=== PATIENT | female | born 1995 | race Caucasian/White ===

== ENCOUNTER 2016-11-19 10:58 | Emergency (ER) | payer OTHER ==
[~2016-11-19 10:58] MED LIST: ACET500C PO; IBUP60TA PO; PRENTAB40 PO; REGL5TAB2 PO; ZOFR4SOL PO
--- NOTE | 2016-11-19 12:22 | EDDOCDS ---
Physician Documentation [facility] Name: Matilde Kilpatrick Age: 21 yrs Sex: Female : 1995 Arrival Date: 11/19/2016 Time: 10:58 Bed PR Private MD: Bari Disposition: 11/19/16 12:13 Discharged to Home/Self Care. Impression: Other abnormal uterine and vaginal bleeding - menstural cycle, Encounter for test. - Condition is Stable. - Prescriptions for Naprosyn 500 mg Oral Tablet - take 1 tablet by ORAL route 2 times per day take with food; 30 tablet. - Medication Reconciliation form. - Follow up: Bari; When: Call to arrange an appointment; Reason: Wound/Symptom Recheck, Recheck today's complaints, Worsening of conditions, Continuance of care. - Problem is an ongoing problem. - Symptoms are unchanged. Historical: - Allergies: No known drug Allergies; - Home Meds: 1. Depo-Provera 150 mg/mL IM susp 1 mL every 3 mo (Last dose: 09/25/2016) - PMHx: none; - PSHx: D & C; Ankle Arthroscopy- Left; - Social history: Smoking status: Patient states former smoker of tobacco. No barriers to communication noted, The patient speaks fluent Korean, Speaks appropriately for age. - Family history: Not pertinent. - : The pt / caregiver states he / she is not on anticoagulants. Home medication list is obtained from the patient. - Exposure Risk Screening:: None identified. 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 7 in. (170.18 cm) (R); 12:16 BP 142 / 64 LA Sitting (auto/lg); Pulse 89; Resp 20; Temp 97.9(O); Pulse Ox 100% on bnb R/A; Pain 4/10; 11:00 Body Mass Index 29.60 (85.73 kg, 170.18 cm) elp MDM: 11:15 Hcg, Serum Quantitative Ordered. EDMS 11:23 Financial registration complete. mm15 11:26 [facility] Payment Agreement was scanned into [employer] and attached to record. mm15 12:10 Hcg, Serum Quantitative Reviewed. cc10 Signatures: Dispatcher [employer] EDPA Anthony Beltrán RN RN mlb1 Nitza Tracy RN RN hs1 Ash Randhawa mm15 Percy Hatfield PA-C PAChristopher cc10 The chart was reviewed and I authenticate all verbal orders and agree with the evaluation and treatment provided.Attachments: 11:26 [facility] Payment Agreement mm15 MTDD
--- NOTE | 2016-11-19 12:22 | EDDOCDS ---
Nurse's Notes [facility] Name: Matilde Kilpatrick Age: 21 yrs Sex: Female : 1995 Arrival Date: 11/19/2016 Time: 10:58 Bed PR1 / 25 Private MD: Bari Diagnosis: Other abnormal uterine and vaginal bleeding-menstural cycle;Encounter for test Presentation: 11/19 11:06 Presenting complaint: Patient states: 2 positive tests last week however hs1 faint and patient report blood every time she wipes and is now crampy. Risk factors: The patient reports no loss of conciousness prior to arrival. This patient has not had a hysterectomy. This patient has not begun menopause. Adult Sepsis Screening: The patient does not have new or worsening altered mentation. Patient's respiratory rate is less than 22. Systolic blood pressure is greater than 100. Patient has a qSOFA score of 0- Negative Sepsis Screen. Suicide/Homicide risk assessment- the patient denies having any suicidal and/or homicidal ideations and does not present with any other emotional, behavioral or mental health complaints. Status: The patient is a dependent. Transition of care: patient was not received from another setting of care. 11:06 Acuity: GUANACO Level 3 hs1 11:06 Method Of Arrival: Walkin/Carried/Asstd hs1 Triage Assessment: 11:08 General: Appears in no apparent distress, comfortable, Behavior is appropriate for age, hs1 cooperative. Pain: Location: pelvis Pain currently is 4 out of 10 on a pain scale. Quality of pain is described as crampy. HIV screening NA for this visit Offered previously. : Reports vaginal bleeding that is brown when wiping. 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 Depo-Provera 150 mg/mL IM susp 1 mL every 3 mo (Last dose: 09/25/2016) - PMHx: none; - PSHx: D & C; Ankle Arthroscopy- Left; - Social history: Smoking status: Patient states former smoker of tobacco. No barriers to communication noted, The patient speaks fluent Nepali, Speaks appropriately for age. - Family history: Not pertinent. - : The pt / caregiver states he / she is not on anticoagulants. Home medication list is obtained from the patient. - Exposure Risk Screening:: None identified. Screenin:20 Screening information is obtained from the patient. Fall risk: No risks identified. mlb1 Assistance ADL's: requires no assistance with activities of daily living. Abuse/DV Screen: The patient / caregiver reports he/she is: not in a situation that causes fear, pain or injury. Nutritional screening: No deficits noted. Advance Directives: Currently, there is no health care proxy. home support is adequate. Assessment: 12:19 General: Appears in no apparent distress, comfortable, Behavior is appropriate for age, mlb1 cooperative. Pain: Denies pain. Respiratory: No deficits noted. :. : NA Reports. Vital Signs: 11:00 BP 146 / 70; Pulse 99; Resp 16; Temp 97.9; Pulse Ox 100% ; Weight 85.73 kg (M); Height elp 5 ft. 7 in. (170.18 cm) (R); 12:16 BP 142 / 64 LA Sitting (auto/lg); Pulse 89; Resp 20; Temp 97.9(O); Pulse Ox 100% on bnb R/A; Pain 4/10; 11:00 Body Mass Index 29.60 (85.73 kg, 170.18 cm) [facility] Vitals: 11:00 Log In Time: November 19, 2016 at 10:58. [facility] ED Course: 11:00 Patient visited by Padmini Oswald PCA. elp 11:00 Bari is Private Physician. elp 11:00 Patient visited by Padmini Oswald PCA. elp 11:00 Patient moved to Waiting elp 11:01 [facility] Hat[facility] cc10 11:01 Alina Greene MD is Attending Physician. cc10 11:01 Patient moved to Pre RCE elp 11:07 Triage Initiated hs1 11:09 Patient moved to Triage 1 hs1 11:10 Patient visited by Percy Hatfield PA-C. cc10 11:10 Patient visited by Percy Hatfield PA-C. cc10 11:22 Patient moved to TR1 mk4 11:26 Patient visited by Vidya Chamberlain RN. mk4 11:26 [facility] Payment Agreement was scanned into [employer] and attached to record. mm15 11:26 Hcg, Serum Quantitative Sent. mk4 12:11 Patient visited by Vidya Chamberlain RN. mk4 12:11 Patient moved to dem 12:13 Bari is Referral Physician. cc10 12:17 Patient visited by Letitia Buck PCA. bnb 12:20 No IV's were initiated during this patient's visit. No procedures done that require mlb1 assistance. 12:21 Patient visited by Anthony Beltrán RN. mlb1 12:21 The patient / caregiver is instructed regarding the plan of care and ED course. mlb1 Order Results: Lab Order: Hcg, Serum Quantitative; SPEC'M 11/19/16 11:21 Test: HCG, SERUM QUANTITATIVE; Value: < 1.0; Units: MIU/ML; Status: F Test Note: ; GESTATIONAL AGE APPROXIMATE HCG RANGE (MIU/ML) 0.2-1 WEEK 5-50 1-2 WEEKS 50-500 2-3 WEEKS 100-5,000 3-4 WEEKS 500-10,000 4-5 WEEKS 1,000-50,000 5-6 WEEKS 10,000-100,000 6-8 WEEKS 15,000-200,000 2-3 MONTHS 10,000-100,000 NON FEMALES LESS THAN 3.0 Patient samples may contain human heterophilic antibodies that could react with immunoassays to give falsely elevated or depressed results. This assay has been designed to minimize interference from heterophilic antibodies. Elevated hCG levels have also been associated with trophoblastic disease and nontrophoblastic neoplasms. The possibility of having these diseases should be considered before a diagnosis of is made. This test is not intended for use as a surrogate marker for aiding in the diagnosis or monitoring the treatment of cancer patients. Siemens Therabiol methodology. Outcome: 12:13 Discharge ordered by Provider. cc10 12:20 Discharge Assessment: Patient awake, alert and oriented x 3. No cognitive and/or mlb1 functional deficits noted. Patient verbalized understanding of disposition instructions. patient administered narcotics - no. The following High Risk Discharge criteria are identified: None. Discharged to home ambulatory, with significant other. Condition: good. Discharge instructions given to patient, Instructed on discharge instructions, follow up and referral plans. medication usage, Demonstrated understanding of instructions, medications, Pt was receptive of discharge instructions/ teaching. Prescriptions given X 1. No special radiology studies were completed. Property sent home with patient. 12:21 Patient left the ED. mlb1 Signatures: Anthony Beltrán RN RN mlb1 Nitza Tracy RN RN hs1 Theo Campbell dem1 Ash Randhawa mm15 Padmini Oswald, VENEER JOINTER HELPER VENEER JOINTER HELPER elp Vidya Chamberlain RN RN mk4 Percy Hatfield, PAHardikC PA-C cc10 Letitia Buck, VENEER JOINTER HELPER VENEER JOINTER HELPER bnb MTDD
--- NOTE | 2016-11-21 13:22 | EDDOCDS ---
Physician Documentation [facility] Name: Matilde Kilpatrick Age: 21 yrs Sex: Female : 1995 Arrival Date: 11/19/2016 Time: 10:58 Bed PR Private MD: Bari Disposition: 11/19/16 12:13 Discharged to Home/Self Care. Impression: Other abnormal uterine and vaginal bleeding - menstural cycle, Encounter for test. - Condition is Stable. - Prescriptions for Naprosyn 500 mg Oral Tablet - take 1 tablet by ORAL route 2 times per day take with food; 30 tablet. - Medication Reconciliation form. - Follow up: Bari; When: Call to arrange an appointment; Reason: Wound/Symptom Recheck, Recheck today's complaints, Worsening of conditions, Continuance of care. - Problem is an ongoing problem. - Symptoms are unchanged. Historical: - Allergies: No known drug Allergies; - Home Meds: 1. Depo-Provera 150 mg/mL IM susp 1 mL every 3 mo (Last dose: 09/25/2016) - PMHx: none; - PSHx: D & C; Ankle Arthroscopy- Left; - Social history: Smoking status: Patient states former smoker of tobacco. No barriers to communication noted, The patient speaks fluent Tajik, Speaks appropriately for age. - Family history: Not pertinent. - : The pt / caregiver states he / she is not on anticoagulants. Home medication list is obtained from the patient. - Exposure Risk Screening:: None identified. 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 7 in. (170.18 cm) (R); 12:16 BP 142 / 64 LA Sitting (auto/lg); Pulse 89; Resp 20; Temp 97.9(O); Pulse Ox 100% on bnb R/A; Pain 4/10; 11:00 Body Mass Index 29.60 (85.73 kg, 170.18 cm) elp MDM: 11:15 Hcg, Serum Quantitative Ordered. EDMS 11:23 Financial registration complete. mm15 11:26 [facility] Payment Agreement was scanned into [employer] and attached to record. mm15 12:10 Hcg, Serum Quantitative Reviewed. cc10 14:53 T-Sheet-- Draft Copy was scanned into [employer] and attached to record. gb Signatures: Dispatcher [employer] EDHI Jania Medina, Reg Reg gb Jerel, Anthony Hubbard RN RN mlb1 Nitza Tracy RN RN hs1 Ash Randhawa mm15 Percy Hatfield, PA-C PA-C cc10 The chart was reviewed and I authenticate all verbal orders and agree with the evaluation and treatment provided.Attachments: 11:26 [facility] Payment Agreement mm15 14:53 T-Sheet-- Draft Copy gb Chart Complete MTDD
--- NOTE | 2016-11-21 13:22 | EDDOCDS ---
Physician Documentation [facility] Name: Matilde Kilpatrick Age: 21 yrs Sex: Female : 1995 Arrival Date: 11/19/2016 Time: 10:58 Bed PR Private MD: Bari Disposition: 11/19/16 12:13 Discharged to Home/Self Care. Impression: Other abnormal uterine and vaginal bleeding - menstural cycle, Encounter for test. - Condition is Stable. - Prescriptions for Naprosyn 500 mg Oral Tablet - take 1 tablet by ORAL route 2 times per day take with food; 30 tablet. - Medication Reconciliation form. - Follow up: Bari; When: Call to arrange an appointment; Reason: Wound/Symptom Recheck, Recheck today's complaints, Worsening of conditions, Continuance of care. - Problem is an ongoing problem. - Symptoms are unchanged. Historical: - Allergies: No known drug Allergies; - Home Meds: 1. Depo-Provera 150 mg/mL IM susp 1 mL every 3 mo (Last dose: 09/25/2016) - PMHx: none; - PSHx: D & C; Ankle Arthroscopy- Left; - Social history: Smoking status: Patient states former smoker of tobacco. No barriers to communication noted, The patient speaks fluent Romansh, Speaks appropriately for age. - Family history: Not pertinent. - : The pt / caregiver states he / she is not on anticoagulants. Home medication list is obtained from the patient. - Exposure Risk Screening:: None identified. 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 7 in. (170.18 cm) (R); 12:16 BP 142 / 64 LA Sitting (auto/lg); Pulse 89; Resp 20; Temp 97.9(O); Pulse Ox 100% on bnb R/A; Pain 4/10; 11:00 Body Mass Index 29.60 (85.73 kg, 170.18 cm) elp MDM: 11:15 Hcg, Serum Quantitative Ordered. EDMS 11:23 Financial registration complete. mm15 11:26 [facility] Payment Agreement was scanned into [employer] and attached to record. mm15 12:10 Hcg, Serum Quantitative Reviewed. cc10 14:53 T-Sheet-- Draft Copy was scanned into [employer] and attached to record. gb Signatures: Dispatcher [employer] EDNY Jania Medina, Reg Reg gb Jerel, Anthony Hubbard RN RN mlb1 Nitza Tracy RN RN hs1 Ash Randhawa mm15 Percy Hatfield, PA-C PA-C cc10 The chart was reviewed and I authenticate all verbal orders and agree with the evaluation and treatment provided.Attachments: 11:26 [facility] Payment Agreement mm15 14:53 T-Sheet-- Draft Copy gb Chart Complete MTDD
--- NOTE | 2016-11-21 13:22 | EDDOCDS ---
Nurse's Notes [facility] Name: Matilde Kilpatrick Age: 21 yrs Sex: Female : 1995 Arrival Date: 11/19/2016 Time: 10:58 Bed PR1 / 25 Private MD: Bari Diagnosis: Other abnormal uterine and vaginal bleeding-menstural cycle;Encounter for test Presentation: 11/19 11:06 Presenting complaint: Patient states: 2 positive tests last week however hs1 faint and patient report blood every time she wipes and is now crampy. Risk factors: The patient reports no loss of conciousness prior to arrival. This patient has not had a hysterectomy. This patient has not begun menopause. Adult Sepsis Screening: The patient does not have new or worsening altered mentation. Patient's respiratory rate is less than 22. Systolic blood pressure is greater than 100. Patient has a qSOFA score of 0- Negative Sepsis Screen. Suicide/Homicide risk assessment- the patient denies having any suicidal and/or homicidal ideations and does not present with any other emotional, behavioral or mental health complaints. Status: The patient is a dependent. Transition of care: patient was not received from another setting of care. 11:06 Acuity: GUANACO Level 3 hs1 11:06 Method Of Arrival: Walkin/Carried/Asstd hs1 Triage Assessment: 11:08 General: Appears in no apparent distress, comfortable, Behavior is appropriate for age, hs1 cooperative. Pain: Location: pelvis Pain currently is 4 out of 10 on a pain scale. Quality of pain is described as crampy. HIV screening NA for this visit Offered previously. : Reports vaginal bleeding that is brown when wiping. 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 Depo-Provera 150 mg/mL IM susp 1 mL every 3 mo (Last dose: 09/25/2016) - PMHx: none; - PSHx: D & C; Ankle Arthroscopy- Left; - Social history: Smoking status: Patient states former smoker of tobacco. No barriers to communication noted, The patient speaks fluent Occitan, Speaks appropriately for age. - Family history: Not pertinent. - : The pt / caregiver states he / she is not on anticoagulants. Home medication list is obtained from the patient. - Exposure Risk Screening:: None identified. Screenin:20 Screening information is obtained from the patient. Fall risk: No risks identified. mlb1 Assistance ADL's: requires no assistance with activities of daily living. Abuse/DV Screen: The patient / caregiver reports he/she is: not in a situation that causes fear, pain or injury. Nutritional screening: No deficits noted. Advance Directives: Currently, there is no health care proxy. home support is adequate. Assessment: 12:19 General: Appears in no apparent distress, comfortable, Behavior is appropriate for age, mlb1 cooperative. Pain: Denies pain. Respiratory: No deficits noted. :. : NA Reports. Vital Signs: 11:00 BP 146 / 70; Pulse 99; Resp 16; Temp 97.9; Pulse Ox 100% ; Weight 85.73 kg (M); Height elp 5 ft. 7 in. (170.18 cm) (R); 12:16 BP 142 / 64 LA Sitting (auto/lg); Pulse 89; Resp 20; Temp 97.9(O); Pulse Ox 100% on bnb R/A; Pain 4/10; 11:00 Body Mass Index 29.60 (85.73 kg, 170.18 cm) [facility] Vitals: 11:00 Log In Time: November 19, 2016 at 10:58. [facility] ED Course: 11:00 Patient visited by Pamdini Oswald PCA. elp 11:00 Bari is Private Physician. elp 11:00 Patient visited by Padmini Oswald PCA. elp 11:00 Patient moved to Waiting elp 11:01 Percy Hatfield PA-C [facility] cc10 11:01 Alina Greene MD is Attending Physician. cc10 11:01 Patient moved to Pre RCE elp 11:07 Triage Initiated hs1 11:09 Patient moved to Triage 1 hs1 11:10 Patient visited by Percy Hatfield PA-C. cc10 11:10 Patient visited by Percy Hatfield PA-C. cc10 11:22 Patient moved to TR1 mk4 11:26 Patient visited by Vidya Chamberlain RN. mk4 11:26 [facility] Payment Agreement was scanned into [employer] and attached to record. mm15 11:26 Hcg, Serum Quantitative Sent. mk4 12:11 Patient visited by Vidya Chamberlain RN. mk4 12:11 Patient moved to dem 12:13 Bari is Referral Physician. cc10 12:17 Patient visited by Letitia Buck PCA. bnb 12:20 No IV's were initiated during this patient's visit. No procedures done that require mlb1 assistance. 12:21 Patient visited by Anthony Beltrán RN. mlb1 12:21 The patient / caregiver is instructed regarding the plan of care and ED course. mlb1 14:53 T-Sheet-- Draft Copy was scanned into [employer] and attached to record. gb Order Results: Lab Order: Hcg, Serum Quantitative; SPEC'M 11/19/16 11:21 Test: HCG, SERUM QUANTITATIVE; Value: < 1.0; Units: MIU/ML; Status: F Test Note: ; GESTATIONAL AGE APPROXIMATE HCG RANGE (MIU/ML) 0.2-1 WEEK 5-50 1-2 WEEKS 50-500 2-3 WEEKS 100-5,000 3-4 WEEKS 500-10,000 4-5 WEEKS 1,000-50,000 5-6 WEEKS 10,000-100,000 6-8 WEEKS 15,000-200,000 2-3 MONTHS 10,000-100,000 NON FEMALES LESS THAN 3.0 Patient samples may contain human heterophilic antibodies that could react with immunoassays to give falsely elevated or depressed results. This assay has been designed to minimize interference from heterophilic antibodies. Elevated hCG levels have also been associated with trophoblastic disease and nontrophoblastic neoplasms. The possibility of having these diseases should be considered before a diagnosis of is made. This test is not intended for use as a surrogate marker for aiding in the diagnosis or monitoring the treatment of cancer patients. Siemens HeartFlow methodology. Outcome: 12:13 Discharge ordered by Provider. cc10 12:20 Discharge Assessment: Patient awake, alert and oriented x 3. No cognitive and/or mlb1 functional deficits noted. Patient verbalized understanding of disposition instructions. patient administered narcotics - no. The following High Risk Discharge criteria are identified: None. Discharged to home ambulatory, with significant other. Condition: good. Discharge instructions given to patient, Instructed on discharge instructions, follow up and referral plans. medication usage, Demonstrated understanding of instructions, medications, Pt was receptive of discharge instructions/ teaching. Prescriptions given X 1. No special radiology studies were completed. Property sent home with patient. 12:21 Patient left the ED. mlb1 Signatures: Jania Medina, Reg Reg gb Anthony Beltrán RN RN mlb1 Nitza Tracy RN RN hs1 Theo Campbell dem1 Ash Randhawa mm15 Padmini Oswald, VACUUM WORKER VACUUM WORKER Vidya Soares, RN RN mk4 Percy Hatfield, PA-C PA-C cc10 Letitia Buck, VACUUM WORKER VACUUM WORKER bnb Chart Complete MTDD
== END 2016-11-19 12:21 | disposition home or self-care (01) ==
LOC: M ED 10:58
DX: N93.9 Abnormal uterine and vaginal bleeding, unspecified (principal); Z32.02 Encounter for pregnancy test, result negative; Z87.891 Personal history of nicotine dependence; Z79.3 Long term (current) use of hormonal contraceptives

== ENCOUNTER 2016-12-23 17:11 | Emergency (ER) | payer OTHER ==
[~2016-12-23] VITALS: Ht 162.6 cm; Wt 86.2 kg
[2016-12-23 20:51] LABS: CONTROL LINE HCG INT CTR LINE PRESENT
[2016-12-23 21:35] VITALS: BP 132/77
== END 2016-12-23 21:47 | disposition home or self-care (01) ==
LOC: M ED 18:16
DX: N94.6 Dysmenorrhea, unspecified (principal); R11.0 Nausea

== ENCOUNTER 2017-03-06 18:40 | Emergency (ER) | payer OTHER ==
[~2017-03-06] VITALS: Ht 162.6 cm; Wt 91.6 kg
[2017-03-06] MEDS ORDERED: ACET500T37 PO (18:53)
[2017-03-06 21:08] LABS: CONTROL LINE UCG INT CTR LINE PRESENT
[2017-03-06 21:20] LABS: BASO % 0.6 % (0.0-1.0); EOS # 0.2 K/mm3 (0.0-0.50); EOS % 3.4 % (0.0-3.0); LARGE UNSTAINED CELL # 0.1 K/mm3 (0.0-0.4); LARGE UNSTAINED CELL % 1.9 % (0.0-4.0); LYMPH # 2.3 K/mm3 (1.5-6.5); LYMPH % 28.7 % (24.0-44.0); MEAN CORPUSCULAR HEMOGLOBIN 25.2 pg (27.0-33.0); MEAN CORPUSCULAR HGB CONC 33.3 g/dl (32.0-36.5); MEAN CORPUSCULAR VOLUME 75.5 fl (80.0-96.0); MONO # 0.4 K/mm3 (0.0-0.8); MONO % 4.8 % (0.0-5.0); NEUTROPHILS # 4.5 K/mm3 (1.8-7.7); NEUTROPHILS % 60.5 % (36.0-66.0); PLATELET COUNT, AUTOMATED 328 k/mm3 (150-450); RED CELL DISTRIBUTION WIDTH 14.6 % (11.5-14.5); WHITE BLOOD COUNT 7.4 K/mm3 (4.0-10.0)
[2017-03-06 21:36] LABS: ALBUMIN 3.9 GM/DL (3.2-5.2); ALBUMIN/GLOBULIN RATIO 1.18 (1.00-1.93); ALKALINE PHOSPHATASE 89 U/L (45-117); ALT/SGPT 28 U/L (12-78); AMYLASE 68 U/L (25-115); ANION GAP 7 MEQ/L (8-16); AST/SGOT 17 U/L (15-37); BILIRUBIN,DIRECT 0.1 MG/DL (0.0-0.2); BILIRUBIN,TOTAL 0.6 MG/DL (0.2-1.0); BLOOD UREA NITROGEN 9 MG/DL (7-18); CALCIUM LEVEL 8.3 MG/DL (8.5-10.1); CARBON DIOXIDE LEVEL 24 MEQ/L (21-32); CHLORIDE LEVEL 107 MEQ/L (98-107); CREATININE FOR GFR 0.78 MG/DL (0.55-1.02); GLOMERULAR FILTRATION RATE > 60.0 (>60); GLUCOSE, FASTING 93 MG/DL (70-105); POTASSIUM SERUM 3.9 MEQ/L (3.5-5.1); SODIUM LEVEL 138 MEQ/L (136-145); TOTAL PROTEIN 7.2 GM/DL (6.4-8.2)
[2017-03-06 22:02] VITALS: BP 140/70
--- NOTE | 2017-03-06 22:10 | REPUSA ---
Clinical history: Right upper quadrant pain. Findings: The pancreas is limited in visualization secondary to overlying bowel gas, but appears clara sly unremarkable. The liver demonstrates increased echotexture and echogenicity, with no mass lesion s. The gallbladder isccontracted, but otherwise unremarkable. The common bile duct measures 3 mm and is within normal limits.. The right kidney measures 10.3 cm in length but is otherwise unremarkable. There is no ascites. Impression: Fatty infiltration of the liver. Otherwise unremarkable ultrasound examination of the [facility] upper quadrant.
== END 2017-03-06 22:41 | disposition home or self-care (01) ==
LOC: M ED 19:48
DX: K80.50 Calculus of bile duct without cholangitis or cholecystitis without obstruction (principal); R11.2 Nausea with vomiting, unspecified; J45.909 Unspecified asthma, uncomplicated

== ENCOUNTER 2017-03-17 00:28 | Day surgery (SDC) | payer OTHER ==
[~2017-03-17] VITALS: Ht 162.6 cm; Wt 88.9 kg
[~2017-03-17 00:28] MED LIST changes: +ACET-683 PO
[2017-03-17] MEDS ORDERED: OMEP10CASR PO (00:35)
[2017-03-17] MEDS ORDERED: KETOROLAC 60 MG/2 ML VIAL (J1885) IM ONE (01:15)
[2017-03-17 01:28] LABS: BASO % 0.6 % (0.0-1.0); EOS # 0.4 K/mm3 (0.0-0.50); EOS % 4.6 % (0.0-3.0); LARGE UNSTAINED CELL # 0.2 K/mm3 (0.0-0.4); LARGE UNSTAINED CELL % 2.7 % (0.0-4.0); LYMPH # 2.3 K/mm3 (1.5-6.5); LYMPH % 26.2 % (24.0-44.0); MEAN CORPUSCULAR HEMOGLOBIN 25.1 pg (27.0-33.0); MEAN CORPUSCULAR HGB CONC 32.9 g/dl (32.0-36.5); MEAN CORPUSCULAR VOLUME 76.4 fl (80.0-96.0); MONO # 0.5 K/mm3 (0.0-0.8); MONO % 5.9 % (0.0-5.0); NEUTROPHILS # 5.2 K/mm3 (1.8-7.7); NEUTROPHILS % 60.2 % (36.0-66.0); PLATELET COUNT, AUTOMATED 288 k/mm3 (150-450); RED CELL DISTRIBUTION WIDTH 14.2 % (11.5-14.5); WHITE BLOOD COUNT 8.6 K/mm3 (4.0-10.0)
[2017-03-17 01:56] LABS: CONTROL LINE HCG INT CTR LINE PRESENT
[2017-03-17 02:04] LABS: ALBUMIN 3.5 GM/DL (3.2-5.2); ALBUMIN/GLOBULIN RATIO 1.09 (1.00-1.93); ALKALINE PHOSPHATASE 77 U/L (45-117); ALT/SGPT 18 U/L (12-78); AMYLASE 73 U/L (25-115); ANION GAP 6 MEQ/L (8-16); AST/SGOT 11 U/L (15-37); BILIRUBIN,DIRECT 0.1 MG/DL (0.0-0.2); BILIRUBIN,TOTAL 0.5 MG/DL (0.2-1.0); BLOOD UREA NITROGEN 11 MG/DL (7-18); CALCIUM LEVEL 8.7 MG/DL (8.5-10.1); CARBON DIOXIDE LEVEL 26 MEQ/L (21-32); CHLORIDE LEVEL 108 MEQ/L (98-107); CREATININE FOR GFR 0.91 MG/DL (0.55-1.02); GLOMERULAR FILTRATION RATE > 60.0 (>60); GLUCOSE, FASTING 104 MG/DL (70-105); POTASSIUM SERUM 3.7 MEQ/L (3.5-5.1); SODIUM LEVEL 140 MEQ/L (136-145); TOTAL PROTEIN 6.7 GM/DL (6.4-8.2)
--- NOTE | 2017-03-17 02:30 | REPUSA ---
CLINICAL HISTORY: Abdominal pain. TECHNIQUE: Realtime sonographic images were obtained in multiple projections. COMMENTS: The liver is of normal size, parenchyma demonstrates normal echogenicity. No discrete hepatic mass is seen. The gallbladder contains multiple gallstones. There is no intra or extrahepatic biliary ductal dilatation. CBD measures 4.6 mm. The gallbladder is physiologically distended without evidence of calculi. The gallbladder wall is not thickened and ther e is no pericholecystic fluid. There is no abdominal ascites. The right kidney measures 10.1x5.4x4.8 cm, free of hydronephrosis. IMPRESSION: Cholelithiasis. Thank you for your kind referral of this patient.
[2017-03-17] MEDS ORDERED: MORPHINE 4 MG/ML 1ML SYRINGE IV ONE (02:45)
[2017-03-17] MEDS ORDERED: ONDANSETRON 4MG/2ML VIAL (J2405) IV ONE (02:45)
[2017-03-17] MEDS ORDERED: NS 1,000 ML IV ONE (03:00)
[2017-03-17] MEDS ORDERED: ACETAMINOPHEN TAB 650MG DOSE (2X325MG) PO PRN (07:45)
[2017-03-17] MEDS ORDERED: MORPHINE 4 MG/ML 1ML SYRINGE IV PRN (07:45)
[2017-03-17] MEDS ORDERED: ONDANSETRON 4MG/2ML VIAL (J2405) IV PRN ×2 (07:45→20:45)
[2017-03-17] MEDS ORDERED: NORCO, ANEXSIA 5/325MG TABLET (HYDROcodone/ACETAMINOPHEN) PO PRN ×2 (07:45)
[2017-03-17 09:25] VITALS: BP 131/70
[2017-03-17] MEDS: LR 1,000 ML IV SCH ×3 (09:33→23:31)
[2017-03-17] MEDS: PANTOPRAZOLE 40MG INJ (PROTONIX) (C9113) IV SCH (09:33)
[2017-03-17] MEDS: metroNIDAZOLE 500 MG in APPROPRIATE DILUENT 1 EA IV SCH ×3 (09:34→23:59)
[2017-03-17] MEDS: CIPROFLOXACIN 400 MG in APPROPRIATE DILUENT 1 EA IV SCH ×2 (11:29→22:01)
[2017-03-17 16:00] VITALS: BP 115/58
--- NOTE | 2017-03-17 17:48 | HPEPDOC ---
General Surgery H&P Date of Admission History and Physical CHIEF COMPLAINT: abdominal pain HISTORY OF PRESENT ILLNESS: 21 F, previously healthy, seen twice in the Emergency room for the past two weeks for ongoing epigastric pain radiating to both left upper and right upper quadrant area and to her back. Last night was awakened with sudden onset severe epigastric pain, nausea, vomiting. She describes her pain as sharp, constant, with radiation to right upper quadrant and mid back. She denies fevers, or chills. In the ER she was evaluated and found to have evidence for cholelithiasis with tenderness around gallbladder area. Pain persisted despite being give multiple doses of IV morphine. ALLERGIES: Please see below. HOME MEDICATIONS: Please see below. PAST MEDICAL HISTORY: None PAST SURGICAL HISTORY: 2 ankle surgeries, Dilatation and Curettage PERSONAL/SOCIAL HISTORY: Denies smoking, recreation alcohol intake, smoking weed REVIEW OF SYSTEMS: GENERAL: Denies chills, fatigue, fever, weight gain and weight loss. HEENT: Denies blurred vision and double vision. Denies ear symptoms. Denies hoarseness. NECK: Denies any neck pain. CARDIOVASCULAR: Denies chest pain and palpitations. MUSCULOSKELETAL: Denies arthralgias, back pain and thrombophlebitis. SKIN: Denies rash. NEUROLOGIC: Denies headache, stroke and transient ischemic attack. PSYCHIATRIC: Denies anxiety and depression. ENDOCRINE: Denies thyroid disease. HEMATOLOGY/ONCOLOGY: Denies any bleeding or clotting disorder. HEART: Denies any chest pains, palpitations, paroxysmal dyspnea, orthopnea. PULMONARY: Denies chronic cough, dyspnea and wheezing. GASTROINTESTINAL: Denies rectal bleeding, family history of colon cancer, constipation, diarrhea, dysphagia, heartburn and jaundice. GENITOURINARY: Denies dysuria, frequency, hematuria and nocturia. ENDOCRINE: Denies polydipsia, polyphagia, polyuria, heat or cold intolerance. INFECTIOUS: Denies any recent upper respiratory tract infection, UTI, need for use of antibiotics. NUTRITION: Reports good appetite. PHYSICAL EXAMINATION: VITAL SIGNS: Please see below. GENERAL APPEARANCE: Patient seen at bedside, appears comfortable. Awake, alert, oriented. HEENT: Normocephalic, atraumatic. [place] palpebral conjunctivae. Anicteric sclerae. Lips moist. CHEST: No chest wall abnormalities. Normal respiratory motion/effort. NECK: Supple. No thyromegaly. No lymphadenopathies. LUNGS: Lung sounds are clear to auscultation bilaterally. No wheezing appreciated. HEART: No chest wall abnormalities. Heart rate and rhythm are regular with no murmurs. ABDOMEN: [Abdomen is obese, soft, slightly rounded. No hepatosplenomegaly. No umbilical or groin herniations, nondistended.Tender to palpation, right upper quadrant area, epigastric area with mild guarding, (+) murphys sign EXTREMITIES: Extremities have no deformities. No edema identified. NEUROLOGICAL: Awake, alert, oriented ANCILLARIES: . LABORATORY DATA: Please see below. MICROBIOLOGY: Please see below. IMAGING: Abdominal Ultrasound Cholelithiasis. IMPRESSION AND PLAN: 1. Cholelithiasis with acute cholecystitis Patient either with early acute cholecystitis or severe biliary colic persistent despite NPO, and IV morphine doses. Patient is admitted under my service. We will start her on antibiotics. She is scheduled for laparoscopic cholecystectomy today. Details of the procedures, risks, benefits discussed with patient. Consent obtained from the patient. Vital Signs Vital Signs Date Time Temp Pulse Resp B/P (MAP) Pulse Ox O2 Delivery O2 Flow Rate FiO2 03/17/17 16:00 98.3 72 18 115/58 (77) 100 Room Air Laboratory Data Labs 24H Laboratory Tests 2 03/17/17 00:47: White Blood Count 8.6, Red Blood Count 4.40, Hemoglobin 11.0L, Hematocrit 33.6L , Mean Corpuscular Volume 76.4L, Mean Corpuscular Hemoglobin 25.1L, Mean Corpuscular Hemoglobin Concent 32.9, Red Cell Distribution Width 14.2, Platelet Count 288, Neutrophils (%) (Auto) 60.2, Lymphocytes (%) (Auto) 26.2, Monocytes ( %) (Auto) 5.9H, Eosinophils (%) (Auto) 4.6H, Basophils (%) (Auto) 0.6, Neutrophils # (Auto) 5.2, Lymphocytes # (Auto) 2.3, Monocytes # (Auto) 0.5, Eosinophils # (Auto) 0.4, Basophils # (Auto) 0.0, Large Unclassified Cells % 2.7 , Large Unclassified Cells # 0.2, Urine Appearance HAZY, Urine Color YELLOW, Urine pH 6.0, Urine Specific [place] 1.020, Urine Protein NEGATIVE, Urine Glucose (UA) NEGATIVE, Urine Ketones NEGATIVE, Urine Urobilinogen 2.0H, Urine Bilirubin NEGATIVE, Urine Leukocyte Esterase NEGATIVE, Urine Blood NEGATIVE, Urine Nitrite NEGATIVE, Urine WBC (Auto) 1, Urine RBC (Auto) 0, Urine Hyaline Casts (Auto) 0, Urine Bacteria (Auto) NEGATIVE, Urine Squamous Epithelial Cells 5, Urine Amorphous Sediment SMALLH, Urine Sperm (Auto) , Anion Gap 6L, Glomerular Filtration Rate > 60.0, Calcium Level 8.7, Aspartate Amino Transf ( AST/SGOT) 11L, Alanine Aminotransferase (ALT/SGPT) 18, Alkaline Phosphatase 77, Total Bilirubin 0.5, Direct Bilirubin 0.1, Total Protein 6.7, Albumin 3.5, Albumin/Globulin Ratio 1.09, Amylase Level 73, Lipase 335, Human Chorionic Gonadotropin, Qual NEGATIVE CBC/BMP Laboratory Tests 03/17/17 00:47 Red Blood Count 4.40, Mean Corpuscular Volume 76.4 L, Mean Corpuscular Hemoglobin 25.1 L, Mean Corpuscular Hemoglobin Concent 32.9, Red Cell Distribution Width 14.2, Neutrophils (%) (Auto) 60.2, Lymphocytes (%) (Auto) 26.2, Monocytes (%) (Auto) 5.9 H, Eosinophils (%) (Auto) 4.6 H, Basophils (%) ( Auto) 0.6, Neutrophils # (Auto) 5.2, Lymphocytes # (Auto) 2.3, Monocytes # (Auto ) 0.5, Eosinophils # (Auto) 0.4, Basophils # (Auto) 0.0 Microbiology Microbiology 03/17/17 Urine Culture, Worksheet Pending Home Medications Scheduled Multivitamins/ ( and Iron) 1 Tab Tab, 1 TAB PO DAILY, (Reported) Scheduled PRN Acetaminophen (Acetaminophen Extra Stren) 500 Mg Tab, 1,000 MG PO QID PRN for PAIN, (Reported) Acetaminophen/Hydrocodone ([place], Anexsia 5/325) 1 Tab Tab, 1-2 TAB PO Q4HP PRN for MODERATE PAIN (PS 5-7) Omeprazole (PriLOSEC) 10 Mg Capcr, 10 MG PO DAILY PRN for HEARTBURN/INDIGESTION, (Reported) Allergies Coded Allergies: Tramadol (Unverified Allergy, Unknown, MIGRAINES, 03/17/17) CHRISTINE PEREZ MD Mar 17, 2017 17:48
[2017-03-17] MEDS ORDERED: fentaNYL 100 MCG/2 ML INJECTION (J3010) As Ordered ONE ×2 (18:23→20:38)
[2017-03-17] MEDS ORDERED: MIDAZOLAM INJ 2 MG/2 ML VIAL (J2250) As Ordered ONE (18:23)
[2017-03-17] MEDS ORDERED: LIDOCAINE 1% SDV INJ 30 ML VIAL As Ordered ONE (18:25)
[2017-03-17] MEDS ORDERED: BUPIVACAINE HCL 0.25% 30 ML VIAL As Ordered ONE (18:25)
[2017-03-17] MEDS ORDERED: LIDOCAINE 2% INJ 100 MG/5 ML SDV (FOR ANES.) As Ordered ONE (18:51)
[2017-03-17] MEDS ORDERED: GLYCOPYRROLATE INJ 0.2 MG/ML 2 ML VIAL As Ordered ONE ×2 (18:51→19:22)
[2017-03-17] MEDS ORDERED: NEOSTIGMINE 1MG/ML 5 ML SYRINGE (J2710) As Ordered ONE ×2 (18:51→19:21)
[2017-03-17] MEDS ORDERED: METOCLOPRAMIDE INJ 10MG/2ML VIAL (J2765) As Ordered ONE (18:51)
[2017-03-17] MEDS ORDERED: ROCURONIUM BROMIDE 50 MG/5 ML VIAL/SYRINGE As Ordered ONE (18:51)
[2017-03-17] MEDS ORDERED: ONDANSETRON 4MG/2ML VIAL (J2405) As Ordered ONE ×2 (18:51→20:42)
[2017-03-17] MEDS ORDERED: PROPOFOL 200 MG/20 ML VIAL As Ordered ONE ×2 (18:51→20:15)
[2017-03-17] MEDS ORDERED: dexameTHASONE 4 MG/ML 1ML VIAL (J1100) As Ordered ONE (19:01)
[2017-03-17] MEDS ORDERED: fentaNYL 250 MCG/5 ML INJECTION (J3010) As Ordered ONE (19:20)
[2017-03-17] MEDS ORDERED: KETOROLAC 60 MG/2 ML VIAL (J1885) As Ordered ONE (19:22)
[2017-03-17] MEDS ORDERED: ESMOLOL INJ 100MG/10ML VIAL As Ordered ONE ×2 (19:46→19:58)
[2017-03-17] MEDS ORDERED: PHENYLephrine HCL 500 MCG/5 ML (100MCG/ML) SYRINGE (J2370) As Ordered ONE (19:58)
--- NOTE | 2017-03-17 20:24 | ROOPDOC ---
[facility] Report Of Operation Report of Operation DATE OF PROCEDURE: 03/17/17 PREPROCEDURE DIAGNOSES: Acute Cholecystitis POSTPROCEDURE DIAGNOSES: Acute Cholecystitis PROCEDURE: Laparoscopic Cholecystectomy SURGEON: Pasha Yao MD ROLL CARRIER: ANESTHESIA: general ESTIMATED BLOOD LOSS: Approximately 40 mL. COMPLICATIONS: none REMARKS: Distended, thickened, acutely inflamed gallbladder. Mild bleeding from the liver bed controlled with Hemoclip. . PROCEDURE NOTE: 21 F, moderately obese, admitted through the ER with one day history of epigastric and right upper quadrant pain DESCRIPTION OF PROCEDURE: . She is brought to the OR for laparoscopic cholecystectomy. She has been receiving ciprofloxacin and metronidazole since admission to the emergency room. General endotracheal anesthesia started. Her abdomen prepped and draped in usual sterile fashion. She had compression stockings for DVT prophylaxis. After surgical timeout we began our surgery. We tried entry into the abdomen above the umbilicus but was having difficulty due to the thickness of her pannus. Entry into the abdomen done through an incision at the left upper quadrant subcostal area. Veress needle inserted and intra-abdominal insufflation done to a pressure of 15 mmHg. Using the incision at the umbilicus, a 12 mm Visiport was placed under direct vision laparoscope. She was then placed on the reverse Trendelenburg position, her right side tilted up about 30 to further expose the gallbladder. 3 working ports were placed in their usual position including 5 mm port at the epigastric area, and 5 mm ports along the right subcostal line. The gallbladder was noted to be moderately distended, thickened and acutely inflamed with gallbladder wall edema edge. Liver appears smooth in appearance. Fundus of gallbladder was grasped and the gallbladder elevated superiorly exposing the infundibulum neck to gallbladder. There were some small adhesions at the underside of the gallbladder which was easily lysed. The hepato-cystic triangle was dissected both with [place] instrument and Bovie cautery. The cystic duct was identified as well as the cystic artery. There were both circumferentially dissected. The posterior wall of the neck of the gallbladder was likewise dissected free off the liver bed. Dissection of the Gallbladder neck done until we met the critical view of safety whereby only the previously identified cystic duct and cystic artery were coursing through the neck to gallbladder. The cystic artery was clipped 4 times and divided. We were able to further identify the anterior branch of the cystic artery and this was likewise clipped and divided. There was some bleeding at the anterior border of the liver as we dissected the gallbladder from this. This was controlled with a Hemoclip though we had more function of the ligamentous clip requiring a new clip planning assistant which caused some further bleeding while waiting. The cystic artery was clipped 4 times and subsequently divided. The rest of the gallbladder was then dissected off the liver bed with Bovie cautery. Acutely The gallbladder was delivered into the bag and retrieved from the umbilical port site using.. On re-insufflation, we examined our surgical site. Liver bed shows no further bleeding. The clips at the cystic duct and artery were noted to be well placed. We irrigated the blood of the abdominal bed until we have clear returns. The abdomen was then deflated, all ports removed. The fascial defect at the umbilical port site was closed with 0 Vicryl. All skin incisions closed with 4-0 Monocryl in subcuticular fashion Dermabond was used for wound coverage. Patient was then promptly awake and extubated and brought to the recovery room stable sponges and instruments verified to be correct . CHRISTINE YAO MD Mar 17, 2017 19:09
[2017-03-17] MEDS: fentaNYL 100 MCG/2 ML INJECTION (J3010) IV PRN ×2 (20:40→20:50)
[2017-03-17] MEDS ORDERED: PERCOCET 5MG/325MG TAB PO PRN (20:45)
[2017-03-17] MEDS ORDERED: LR 1,000 ML IV SCH (20:45)
[2017-03-17 21:40] VITALS: BP 124/63
[2017-03-17 22:10] VITALS: BP 121/56
[2017-03-17 22:40] VITALS: BP 119/64
[2017-03-17 23:40] VITALS: BP 133/60
[2017-03-18 00:40] VITALS: BP 127/63
[2017-03-18 01:40] VITALS: BP 120/58
[2017-03-18 02:44] VITALS: BP 115/58
[2017-03-18 06:51] LABS: BASO % 0.1 % (0.0-1.0); EOS % 0.1 % (0.0-3.0); LARGE UNSTAINED CELL % 0.4 % (0.0-4.0); LYMPH # 0.6 K/mm3 (1.5-6.5); LYMPH % 5.8 % (24.0-44.0); MEAN CORPUSCULAR HEMOGLOBIN 24.7 pg (27.0-33.0); MEAN CORPUSCULAR HGB CONC 32.5 g/dl (32.0-36.5); MEAN CORPUSCULAR VOLUME 76.1 fl (80.0-96.0); MONO # 0.3 K/mm3 (0.0-0.8); MONO % 2.9 % (0.0-5.0); NEUTROPHILS # 8.9 K/mm3 (1.8-7.7); NEUTROPHILS % 90.7 % (36.0-66.0); PLATELET COUNT, AUTOMATED 231 k/mm3 (150-450); RED CELL DISTRIBUTION WIDTH 13.9 % (11.5-14.5); WHITE BLOOD COUNT 9.8 K/mm3 (4.0-10.0)
[2017-03-18 07:09] LABS: ALBUMIN 3.2 GM/DL (3.2-5.2); ALBUMIN/GLOBULIN RATIO 0.94 (1.00-1.93); ALKALINE PHOSPHATASE 67 U/L (45-117); ALT/SGPT 24 U/L (12-78); ANION GAP 5 MEQ/L (8-16); AST/SGOT 19 U/L (15-37); BILIRUBIN,TOTAL 0.7 MG/DL (0.2-1.0); BLOOD UREA NITROGEN 9 MG/DL (7-18); CALCIUM LEVEL 8.3 MG/DL (8.5-10.1); CARBON DIOXIDE LEVEL 25 MEQ/L (21-32); CHLORIDE LEVEL 108 MEQ/L (98-107); CREATININE FOR GFR 0.78 MG/DL (0.55-1.02); GLOMERULAR FILTRATION RATE > 60.0 (>60); GLUCOSE, FASTING 116 MG/DL (70-105); POTASSIUM SERUM 4.5 MEQ/L (3.5-5.1); SODIUM LEVEL 138 MEQ/L (136-145); TOTAL PROTEIN 6.6 GM/DL (6.4-8.2)
[2017-03-18] MEDS: LR 1,000 ML IV SCH (07:31)
[2017-03-18] MEDS: metroNIDAZOLE 500 MG in APPROPRIATE DILUENT 1 EA IV SCH (07:51)
[2017-03-18 08:00] VITALS: BP 129/68
[2017-03-18] MEDS: CIPROFLOXACIN 400 MG in APPROPRIATE DILUENT 1 EA IV SCH (09:07)
[2017-03-18] MEDS: PANTOPRAZOLE 40MG INJ (PROTONIX) (C9113) IV SCH (09:07)
[2017-03-18] MEDS ORDERED: NORCOTAB PO (09:56)
[2017-08-14] MEDS ORDERED: KEFL500C17 PO (16:00)
== END 2017-03-18 11:15 | disposition home or self-care (01) ==
LOC: M ED 00:50 → M SDC 07:31 → M PED 09:17 → M SDC 03-18 11:15
PROVIDERS: ATTEND Surgery
DX: K80.10 Calculus of gallbladder with chronic cholecystitis without obstruction (principal); J45.909 Unspecified asthma, uncomplicated; Z88.5 Allergy status to narcotic agent; Z86.59 Personal history of other mental and behavioral disorders
CPT/HCPCS: 36415; 47562; 76705; 80048; 80053; 80076; 81001; 82150; 83690; 84703; 85025; 87086; 88304; 96365; 96366; 96367; 96372; 96375; 96376; 99284; C9113; J0744; J1100; J1885; J2250; J2370; J2405; J2710; J2765; J3010

== ENCOUNTER → 2017-05-28 | Outpatient (CLI) | payer OTHER ==
[~2017-05-28] MED LIST changes: +COLA100C5 PO; +KEFL500C17 PO; +NITRO10CA PO; +NORCOTAB PO; +OMEP10CASR PO; +REGL10TA6 PO; +ZOFR4TAB3 PO
[2017-05-28 15:58] LABS: BASO % 0.1 % (0.0-1.0); EOS # 0.2 K/mm3 (0.0-0.50); EOS % 1.3 % (0.0-3.0); LARGE UNSTAINED CELL # 0.1 K/mm3 (0.0-0.4); LARGE UNSTAINED CELL % 0.8 % (0.0-4.0); LYMPH # 1.7 K/mm3 (1.5-6.5); LYMPH % 13.5 % (24.0-44.0); MEAN CORPUSCULAR HEMOGLOBIN 25.3 pg (27.0-33.0); MEAN CORPUSCULAR HGB CONC 33.5 g/dl (32.0-36.5); MEAN CORPUSCULAR VOLUME 75.3 fl (80.0-96.0); MONO # 0.4 K/mm3 (0.0-0.8); MONO % 3.5 % (0.0-5.0); NEUTROPHILS # 9.5 K/mm3 (1.8-7.7); NEUTROPHILS % 80.7 % (36.0-66.0); PLATELET COUNT, AUTOMATED 287 k/mm3 (150-450); RED CELL DISTRIBUTION WIDTH 15.9 % (11.5-14.5); WHITE BLOOD COUNT 11.8 K/mm3 (4.0-10.0)
[2017-05-30 11:33] LABS: HBsAg Prenatal NEGATIVE (NEGATIVE)
== END ==
LOC: M LAB 15:01
PROVIDERS: ATTEND Obstetrics & Gynecology
DX: Z36 Encounter for antenatal screening of mother (principal); Z3A.00 Weeks of gestation of pregnancy not specified

== ENCOUNTER 2017-05-29 22:11 | Emergency (ER) | payer OTHER ==
[~2017-05-29] VITALS: Ht 162.6 cm; Wt 90.9 kg
[~2017-05-29 22:11] MED LIST changes: -COLA100C5 PO; -KEFL500C17 PO; -NITRO10CA PO; -REGL10TA6 PO; -ZOFR4TAB3 PO
[2017-05-30] MEDS ORDERED: NS 1,000 ML IV ONE (01:00)
[2017-05-30] MEDS ORDERED: METOCLOPRAMIDE INJ 10MG/2ML VIAL (J2765) IV ONE (01:00)
[2017-05-30] MEDS ORDERED: MORPHINE 2 MG/ML 1ML SYRINGE IV PRN (01:00)
[2017-05-30 01:23] LABS: EOS % 0.2 % (0.0-3.0); LARGE UNSTAINED CELL % 0.3 % (0.0-4.0); LYMPH # 0.5 K/mm3 (1.5-6.5); MEAN CORPUSCULAR HEMOGLOBIN 25.1 pg (27.0-33.0); MEAN CORPUSCULAR HGB CONC 33.4 g/dl (32.0-36.5); MONO # 0.2 K/mm3 (0.0-0.8); MONO % 1.8 % (0.0-5.0); NEUTROPHILS # 12.3 K/mm3 (1.8-7.7); NEUTROPHILS % 93.7 % (36.0-66.0); PLATELET COUNT, AUTOMATED 326 k/mm3 (150-450); RED CELL DISTRIBUTION WIDTH 15.7 % (11.5-14.5); WHITE BLOOD COUNT 13.1 K/mm3 (4.0-10.0)
[2017-05-30 01:45] LABS: ALBUMIN 3.7 GM/DL (3.2-5.2); ALBUMIN/GLOBULIN RATIO 1.03 (1.00-1.93); ALKALINE PHOSPHATASE 81 U/L (45-117); ALT/SGPT 76 U/L (12-78); ANION GAP 10 MEQ/L (8-16); AST/SGOT 36 U/L (15-37); BILIRUBIN,DIRECT 0.4 MG/DL (0.0-0.2); BILIRUBIN,TOTAL 1.4 MG/DL (0.2-1.0); BLOOD UREA NITROGEN 8 MG/DL (7-18); CARBON DIOXIDE LEVEL 21 MEQ/L (21-32); CHLORIDE LEVEL 106 MEQ/L (98-107); CREATININE FOR GFR 0.68 MG/DL (0.55-1.02); GLOMERULAR FILTRATION RATE > 60.0 (>60); GLUCOSE, FASTING 123 MG/DL (70-105); SODIUM LEVEL 137 MEQ/L (136-145); TOTAL PROTEIN 7.3 GM/DL (6.4-8.2)
[2017-05-30] MEDS ORDERED: REGL10TA6 PO (05:02)
[2017-05-30 05:09] VITALS: BP 140/79
[2017-08-14] MEDS ORDERED: KEFL500C17 PO (16:00)
== END 2017-05-30 05:13 | disposition home or self-care (01) ==
LOC: M ED 22:11
DX: O21.9 Vomiting of pregnancy, unspecified (principal); Z79.899 Other long term (current) drug therapy; Z88.5 Allergy status to narcotic agent; Z3A.09 9 weeks gestation of pregnancy
CPT/HCPCS: 80048; 80076; 81001; 83690; 85025; 87086; 93041; 96374; 96375; 99284; J2765

== ENCOUNTER 2017-06-10 19:45 | Emergency (ER) | payer OTHER ==
[~2017-06-10] VITALS: Ht 162.6 cm; Wt 87.2 kg
[~2017-06-10 19:45] MED LIST changes: +REGL10TA6 PO
[2017-06-10] MEDS ORDERED: ZOFR4TAB3 PO (19:50)
[2017-06-10] MEDS ORDERED: PROMETHAZINE INJ 25 MG/ML VIAL (J2550) IV ONE (22:15)
[2017-06-10] MEDS ORDERED: NS 1,000 ML IV ONE (22:15)
[2017-06-10 22:28] LABS: BASO % 0.1 % (0.0-1.0); EOS # 0.1 K/mm3 (0.0-0.50); EOS % 0.7 % (0.0-3.0); LARGE UNSTAINED CELL # 0.1 K/mm3 (0.0-0.4); LARGE UNSTAINED CELL % 0.7 % (0.0-4.0); LYMPH # 1.1 K/mm3 (1.5-6.5); LYMPH % 8.5 % (24.0-44.0); MEAN CORPUSCULAR HEMOGLOBIN 25.3 pg (27.0-33.0); MEAN CORPUSCULAR HGB CONC 33.7 g/dl (32.0-36.5); MEAN CORPUSCULAR VOLUME 75.1 fl (80.0-96.0); MONO # 0.3 K/mm3 (0.0-0.8); MONO % 2.8 % (0.0-5.0); NEUTROPHILS # 10.3 K/mm3 (1.8-7.7); NEUTROPHILS % 87.2 % (36.0-66.0); PLATELET COUNT, AUTOMATED 279 k/mm3 (150-450); WHITE BLOOD COUNT 11.9 K/mm3 (4.0-10.0)
[2017-06-10 22:50] LABS: ANION GAP 10 MEQ/L (8-16); BLOOD UREA NITROGEN 7 MG/DL (7-18); CALCIUM LEVEL 9.1 MG/DL (8.5-10.1); CARBON DIOXIDE LEVEL 22 MEQ/L (21-32); CHLORIDE LEVEL 107 MEQ/L (98-107); CREATININE FOR GFR 0.68 MG/DL (0.55-1.02); GLOMERULAR FILTRATION RATE > 60.0 (>60); GLUCOSE, FASTING 92 MG/DL (70-105); POTASSIUM SERUM 3.9 MEQ/L (3.5-5.1); SODIUM LEVEL 139 MEQ/L (136-145)
--- NOTE | 2017-06-11 00:10 | REPUSA ---
CLINICAL HISTORY: Cramping and vomiting. TECHNIQUE: Transabdominal ultrasound of the pelvis was performed. FINDINGS: Single, live intrauterine gestation. The estimated gestational age is 11 weeks and 2 days. [place]-rump length 45 mm. heart rate 171 b eats per minute. No subchorionic hemorrhage is identified. Unremarkable maternal adnexa. Estimated de livery date on 12/28/2017. IMPRESSION: Single, live intrauterine gestation.
[2017-06-11 00:30] VITALS: BP 99/58
[2017-08-14] MEDS ORDERED: KEFL500C17 PO (16:00)
== END 2017-06-11 00:37 | disposition home or self-care (01) ==
LOC: M ED 19:45
DX: O21.0 Mild hyperemesis gravidarum (principal); Z3A.10 10 weeks gestation of pregnancy; Z87.891 Personal history of nicotine dependence; Z88.5 Allergy status to narcotic agent

== ENCOUNTER 2017-07-12 13:02 | Emergency (ER) | payer OTHER ==
[~2017-07-12] VITALS: Ht 162.6 cm; Wt 85.9 kg
[~2017-07-12 13:02] MED LIST changes: +ZOFR4TAB3 PO
[2017-07-12] MEDS ORDERED: ONDANSETRON 4MG/2ML VIAL (J2405) IV ONE (14:00)
[2017-07-12] MEDS ORDERED: NS 1,000 ML IV ONE (14:00)
[2017-07-12 14:57] LABS: BASO % 0.2 % (0.0-1.0); EOS # 0.1 10^3/uL (0.0-0.50); EOS % 1.1 % (0.0-3.0); IMMATURE GRANULOCYTE % 0.4 % (0-0); LYMPH # 1.4 10^3/uL (1.5-6.5); LYMPH % 14.4 % (24.0-44.0); MEAN CORPUSCULAR HEMOGLOBIN 25.4 pg (27.0-33.0); MEAN CORPUSCULAR HGB CONC 33.3 g/dl (32.0-36.5); MEAN CORPUSCULAR VOLUME 76.1 fl (80.0-96.0); MONO # 0.6 10^3/uL (0.0-0.8); MONO % 5.9 % (0.0-5.0); NEUTROPHILS # 7.5 10^3/uL (1.8-7.7); PLATELET COUNT, AUTOMATED 262 10^3/uL (150-450); RED CELL DISTRIBUTION WIDTH 16.8 % (11.5-14.5); WHITE BLOOD COUNT 9.6 10^3/uL (4.0-10.0)
[2017-07-12 14:58] LABS: ADD MORPHOLOGY? NO
[2017-07-12 15:01] LABS: ANION GAP 10 MEQ/L (8-16); BLOOD UREA NITROGEN 6 MG/DL (7-18); CARBON DIOXIDE LEVEL 21 MEQ/L (21-32); CHLORIDE LEVEL 106 MEQ/L (98-107); CREATININE FOR GFR 0.44 MG/DL (0.55-1.02); GLOMERULAR FILTRATION RATE > 60.0 (>60); GLUCOSE, FASTING 87 MG/DL (70-105); POTASSIUM SERUM 3.7 MEQ/L (3.5-5.1); SODIUM LEVEL 137 MEQ/L (136-145)
[2017-07-12 15:27] VITALS: BP 124/71
[2017-07-12] MEDS ORDERED: NITRO10CA PO (15:36)
--- NOTE | 2017-07-13 08:09 | REP ---
A single intrauterine is present in vertex presentation. Biparietal diameter is 3.1 cm corresponding to a gestational age of 15 weeks 6 days. Head circumference is 11.5 cm corresponding to a gestational age of 15 weeks 4 days. Abdominal circumference is 9.2 cm corresponding to a gestational age of 15 weeks 2 days. Femur length is 1.9 cm corresponding to a gestational age of 15 weeks 4 days. heart rate is 157 beats per minute. weight is 127 grams. The visualized anatomy is normal. The placenta is located anterior. There is no abruption. Amniotic fluid is within normal limits. Cervix length is 3.2 cm. IMPRESSION: A single intrauterine is present in vertex presentation with a gestational age by ultrasound of 15 weeks 4 days. A repeat examination in 19-20 weeks is recommended for further evaluation. Signed by John Bolden MD 07/13/2017 08:21 A
[2017-08-14] MEDS ORDERED: KEFL500C17 PO (16:00)
== END 2017-07-12 16:20 | disposition home or self-care (01) ==
LOC: M ED 13:02
DX: O21.9 Vomiting of pregnancy, unspecified (principal); O23.32 Infections of other parts of urinary tract in pregnancy, second trimester; O99.512 Diseases of the respiratory system complicating pregnancy, second trimester; J45.909 Unspecified asthma, uncomplicated; Z3A.15 15 weeks gestation of pregnancy; Z87.891 Personal history of nicotine dependence; Z88.5 Allergy status to narcotic agent
CPT/HCPCS: 76811; 80048; 81001; 85025; 87088; 87186; 96361; 96374; 99283; J2405

== ENCOUNTER 2017-07-23 13:44 | Emergency (ER) | payer OTHER ==
[~2017-07-23] VITALS: Ht 162.6 cm; Wt 82.1 kg
[~2017-07-23 13:44] MED LIST changes: +NITRO10CA PO
[2017-07-23] MEDS ORDERED: COLA100C5 PO (14:04)
[2017-07-23] MEDS ORDERED: BISACODYL 10 MG SUPP PR ONE (14:45)
[2017-07-23 16:00] VITALS: BP 133/66
[2017-08-14] MEDS ORDERED: KEFL500C17 PO (16:00)
== END 2017-07-23 16:06 | disposition home or self-care (01) ==
LOC: M ED 13:44
DX: O99.612 Diseases of the digestive system complicating pregnancy, second trimester (principal); K59.00 Constipation, unspecified; O23.42 Unspecified infection of urinary tract in pregnancy, second trimester; Z3A.00 Weeks of gestation of pregnancy not specified; Z79.2 Long term (current) use of antibiotics; Z88.5 Allergy status to narcotic agent

== ENCOUNTER → 2017-07-30 | Outpatient (CLI) | payer OTHER ==
[~2017-07-30] MED LIST changes: +COLA100C5 PO; +KEFL500C17 PO
== END ==
LOC: M LAB 08:20
PROVIDERS: ATTEND Obstetrics & Gynecology
DX: Z34.00 Encounter for supervision of normal first pregnancy, unspecified trimester (principal)

== ENCOUNTER → 2017-09-09 | Outpatient (CLI) | payer OTHER ==
--- NOTE | 2017-09-09 15:05 | REP ---
Clinical: Anatomical evaluation. Comparison: 08/14/2017 . Findings: Examination demonstrates a single live intrauterine in transverse (head to maternal left) presentation. motion is identified by technologist. Placenta is noted anteriorly and grade zero without evidence for placenta previa or abruption. Amniotic fluid volume is normal. Cervix measures 3.6 cm in length and appears closed. No evidence for nuchal cord. Gestational age by LMP 23 weeks 5 days with ZENON 01/01/2018 . Gestational age by current measurements 23 weeks 4 days with ZENON 03/04/2018 . FHR equals 131 beats per minute. Estimated weight 658 grams ( 55th percentile). Anatomical assessment demonstrates normal structures including cranium, choroid plexus, cavum, cerebellum/posterior fossa, facial features, lungs, four-chamber heart, diaphragm, stomach, cord insertion/three-vessel cord, kidneys/bladder, spine, and extremities. Impression: 1. Single live intrauterine in transverse lie demonstrating appropriate interval growth. 2. In conjunction with prior examination anatomical assessment is complete and normal. Signed by Jose Miguel Lopes MD 09/09/2017 02:56 P
== END ==
LOC: M SMT 13:37
PROVIDERS: ATTEND Obstetrics & Gynecology
DX: Z34.82 Encounter for supervision of other normal pregnancy, second trimester (principal); Z3A.23 23 weeks gestation of pregnancy

== ENCOUNTER 2017-09-17 15:16 | Outpatient (CLI) | payer OTHER ==
[~2017-09-17] VITALS: Ht 162.6 cm; Wt 83.7 kg
[2017-09-17 15:27] VITALS: BP 126/73
[2017-09-17 15:41] VITALS: BP 124/75
== END 2017-09-17 16:30 | disposition home or self-care (01) ==
LOC: M LDO 15:16
PROVIDERS: ATTEND Obstetrics & Gynecology
DX: O47.02 False labor before 37 completed weeks of gestation, second trimester (principal); Z3A.24 24 weeks gestation of pregnancy

== ENCOUNTER → 2017-09-24 | Outpatient (CLI) | payer OTHER ==
[2017-09-24 13:10] LABS: MEAN CORPUSCULAR HEMOGLOBIN 24.5 pg (27.0-33.0); MEAN CORPUSCULAR HGB CONC 30.9 g/dl (32.0-36.5); MEAN CORPUSCULAR VOLUME 79.2 fl (80.0-96.0); PLATELET COUNT, AUTOMATED 320 10^3/uL (150-450); RED CELL DISTRIBUTION WIDTH 15.1 % (11.5-14.5); WHITE BLOOD COUNT 13.7 10^3/uL (4.0-10.0)
== END ==
LOC: M LAB 11:47
PROVIDERS: ATTEND Obstetrics & Gynecology
DX: Z34.82 Encounter for supervision of other normal pregnancy, second trimester (principal)
CPT/HCPCS: 36415; 82950; 85027; 86850; 86900; 86901; J2790

== ENCOUNTER 2017-10-16 00:21 | Outpatient (CLI) | payer OTHER | END 2017-10-16 01:26 | disposition home or self-care (01) | LOC: M LDO 00:21 | DX: O62.0 Primary inadequate contractions (principal); Z3A.28 28 weeks gestation of pregnancy; Z79.899 Other long term (current) drug therapy; Z88.5 Allergy status to narcotic agent; Z88.1 Allergy status to other antibiotic agents | CPT/HCPCS: 59025 ==

== ENCOUNTER → 2017-11-19 | Outpatient (CLI) | payer OTHER ==
[2017-11-19] MEDS: TERBUTALINE SULFATE 1 MG/ML VIAL (J3105) SC (04:35)
== END ==
LOC: M LDO 03:09
DX: O47.03 False labor before 37 completed weeks of gestation, third trimester (principal); Z3A.33 33 weeks gestation of pregnancy
CPT/HCPCS: J3105

== ENCOUNTER 2017-11-29 15:07 | Outpatient (CLI) | payer OTHER ==
[2017-11-29] MEDS: ONDANSETRON 4 MG ORAL DISINTEGRATING TAB (S0181) PO (16:09)
[2017-11-29 17:02] LABS: APPEARANCE, URINE CLOUDY (CLEAR); BACTERIA, URINE AUTO NEGATIVE (NEGATIVE); BILIRUBIN, URINE AUTO NEGATIVE (NEGATIVE); BLOOD, URINE BLOOD NEGATIVE (NEGATIVE); COLOR, URINE AMBER (YELLOW); GLUCOSE, URINE (UA) AUTO 1+ mg/dL (NEGATIVE); KETONE, URINE AUTO NEGATIVE (NEGATIVE); LEUKOCYTE ESTERASE, URINE AUTO NEGATIVE (NEGATIVE); MUCUS, URINE SMALL (NEGATIVE); NITRITE, URINE AUTO NEGATIVE (NEGATIVE); PROTEIN, URINE AUTO 1+ mg/dL (NEGATIVE); RBC, URINE AUTO 0 /HPF (0-3); SPECIFIC GRAVITY URINE AUTO 1.026 (1.002-1.035); SQUAMOUS EPITHELIAL CELL UR AU 11 /HPF (0-6); WBC, URINE AUTO 1 /HPF (0-3)
== END 2017-11-29 17:17 | disposition home or self-care (01) ==
LOC: M LDO 15:07
DX: O47.03 False labor before 37 completed weeks of gestation, third trimester (principal); Z3A.35 35 weeks gestation of pregnancy
CPT/HCPCS: 59025

== ENCOUNTER 2017-12-06 23:29 | Outpatient (CLI) | payer OTHER | END 2017-12-07 00:30 | disposition home or self-care (01) | LOC: M LDO 23:29 | DX: O47.03 False labor before 37 completed weeks of gestation, third trimester (principal); Z3A.36 36 weeks gestation of pregnancy; O99.513 Diseases of the respiratory system complicating pregnancy, third trimester; J45.909 Unspecified asthma, uncomplicated; Z88.1 Allergy status to other antibiotic agents; Z88.8 Allergy status to other drugs, medicaments and biological substances | CPT/HCPCS: 59025 ==

== ENCOUNTER 2017-12-08 23:26 | Outpatient (CLI) | payer OTHER | END 2017-12-09 00:30 | disposition home or self-care (01) | LOC: M LDO 23:26 | DX: O26.893 Other specified pregnancy related conditions, third trimester (principal); Z3A.36 36 weeks gestation of pregnancy; Z88.8 Allergy status to other drugs, medicaments and biological substances | CPT/HCPCS: 59025 ==

== ENCOUNTER 2017-12-12 19:19 | Outpatient (CLI) | payer OTHER | END 2017-12-12 20:53 | disposition home or self-care (01) | LOC: M LDO 19:19 | DX: O47.03 False labor before 37 completed weeks of gestation, third trimester (principal); Z3A.36 36 weeks gestation of pregnancy | CPT/HCPCS: 59025 ==

== ENCOUNTER 2017-12-13 09:38 | Outpatient (CLI) | payer OTHER | END 2017-12-13 11:10 | disposition home or self-care (01) | LOC: M LDO 09:38 | DX: O26.893 Other specified pregnancy related conditions, third trimester (principal); R10.84 Generalized abdominal pain; O47.1 False labor at or after 37 completed weeks of gestation; Z3A.37 37 weeks gestation of pregnancy | CPT/HCPCS: 59025 ==

== ENCOUNTER 2017-12-22 17:28 | Inpatient (IN) | payer OTHER ==
[2017-12-22] MEDS ORDERED: LACTATED RINGER'S 1000 ML IV (18:53)
[2017-12-22] MEDS ORDERED: LR 1,000 ML IV (19:00)
[2017-12-22 19:09] LABS: HEMATOCRIT 32.8 % (36.0-47.0); HEMOGLOBIN 10.7 g/dl (12.0-16.0); MEAN CORPUSCULAR HEMOGLOBIN 25.5 pg (27.0-33.0); MEAN CORPUSCULAR HGB CONC 32.6 g/dl (32.0-36.5); MEAN CORPUSCULAR VOLUME 78.1 fl (80.0-96.0); PLATELET COUNT, AUTOMATED 247 10^3/uL (150-450); RED CELL DISTRIBUTION WIDTH 17.5 % (11.5-14.5); WHITE BLOOD COUNT 17.2 10^3/uL (4.0-10.0)
[2017-12-22] MEDS ORDERED: FENTANYL 2MCG/ML ROPIVACAINE 0.2% IN 0.9% NACL 200ML IVBAG As Ordered (19:15)
[2017-12-22] MEDS ORDERED: NALOXONE INJ 0.4 MG/1 ML VIAL (J2310) IV (19:28)
[2017-12-22] MEDS ORDERED: EPIDURAL COMMENT XX (19:28)
[2017-12-22] MEDS ORDERED: FENTANYL/ROPIVACAINE/NACL BAG 200 ML EPIDURAL (19:28)
[2017-12-22] MEDS ORDERED: diphenhydrAMINE INJ 50MG/ML VIAL (J1200) IV (19:28)
[2017-12-22] MEDS ORDERED: REFRIGERATOR IV KEYS XX (19:28)
[2017-12-22] MEDS ORDERED: EPIDURAL/PCA KEYS XX (19:28)
[2017-12-22] MEDS ORDERED: ONDANSETRON 4MG/2ML VIAL (J2405) IV (19:28)
[2017-12-22] MEDS ORDERED: OXYTOCIN 30 UNITS IN 0.9% NaCl 500ML IV BAG (J2590) As Ordered (19:32)
[2017-12-22] MEDS ORDERED: MEASLES,MUMPS,RUBELLA VACCINE INJ (MMR-II) (90707) SC (20:30)
[2017-12-22] MEDS ORDERED: ANUSOL HC CREAM 30GM TOP (20:30)
[2017-12-22] MEDS ORDERED: RHOGAM 300 MCG (1500 IU) INJ (J2790) IM (20:30)
[2017-12-22] MEDS ORDERED: DIBUCAINE 1% OINTMENT 30GM TOP (20:30)
[2017-12-22] MEDS ORDERED: IBUPROFEN 800 MG TAB PO (20:30)
[2017-12-22] MEDS ORDERED: MOM 30ML SUSPENSION UDC PO (20:30)
[2017-12-22] MEDS ORDERED: DOCUSATE SODIUM 100 MG CAP PO (20:30)
[2017-12-22] MEDS ORDERED: METHYLERGONOVINE MALEATE 0.2 MG TAB PO (20:30)
[2017-12-22] MEDS: OXYTOCIN DRIP 30 UNITS in APPROPRIATE DILUENT 1 EA IV (20:54)
[2017-12-22] MEDS: ACETAMINOPHEN 500 MG TAB PO (21:10)
[2017-12-23] MEDS: PRENATAL VITAMINS CHEWABLE TABLET PO (09:33)
[2017-12-24] MEDS: PRENATAL VITAMINS CHEWABLE TABLET PO (08:49)
== END 2017-12-24 11:00 | disposition home or self-care (01) | DRG 775 ==
LOC: M LDO 17:28 → M LDI 18:37 → M OBS 21:39
PROVIDERS: Obstetrics & Gynecology
PROC: 10E0XZZ Delivery of Products of Conception, External Approach (ICD-10-PCS; principal; 2017-12-22)
DX: O69.81X0 Labor and delivery complicated by cord around neck, without compression, not applicable or unspecified (principal); Z37.0 Single live birth; Z3A.38 38 weeks gestation of pregnancy; Z90.49 Acquired absence of other specified parts of digestive tract

== ENCOUNTER 2018-02-13 08:05 | Day surgery (SDC) | payer OTHER ==
[2018-02-13 08:29] LABS: HEMATOCRIT 34.3 % (36.0-47.0); HEMOGLOBIN 11.2 g/dl (12.0-15.5); MEAN CORPUSCULAR HEMOGLOBIN 26.2 pg (27.0-33.0); MEAN CORPUSCULAR HGB CONC 32.7 g/dl (32.0-36.5); MEAN CORPUSCULAR VOLUME 80.3 fl (80.0-96.0); PLATELET COUNT, AUTOMATED 281 10^3/uL (150-450); RED BLOOD COUNT 4.27 10^6/uL (4.00-5.40); RED CELL DISTRIBUTION WIDTH 15.7 % (11.5-14.5); WHITE BLOOD COUNT 6.4 10^3/uL (4.0-10.0)
[2018-02-13 08:44] LABS: CONTROL LINE HCG INT CTR LINE PRESENT; HCG, SERUM QUALITATIVE NEGATIVE (NEGATIVE)
[2018-02-13] MEDS ORDERED: MIDAZOLAM INJ 2 MG/2 ML VIAL (J2250) As Ordered ×2 (09:27)
[2018-02-13] MEDS ORDERED: ROCURONIUM BROMIDE 50 MG/5 ML VIAL As Ordered ×2 (09:28)
[2018-02-13] MEDS ORDERED: LIDOCAINE 2% INJ 100 MG/5 ML SDV (FOR ANES.) As Ordered ×2 (09:28)
[2018-02-13] MEDS ORDERED: SUCCINYLCHOLINE 100 MG/5 ML SYRINGE (J0330) As Ordered ×2 (09:28)
[2018-02-13] MEDS ORDERED: fentaNYL 100 MCG/2 ML INJECTION (J3010) As Ordered ×6 (09:28→12:09)
[2018-02-13] MEDS ORDERED: PROPOFOL 200 MG/20 ML VIAL As Ordered ×2 (09:28)
[2018-02-13] MEDS ORDERED: ONDANSETRON 4MG/2ML VIAL (J2405) As Ordered ×4 (09:28→14:10)
[2018-02-13] MEDS ORDERED: dexameTHASONE 4 MG/ML 1ML VIAL (J1100) As Ordered ×4 (09:29→11:25)
[2018-02-13] MEDS ORDERED: BUPIVACAINE HCL 0.25% 30 ML VIAL As Ordered ×2 (10:41)
[2018-02-13] MEDS: LR 1,000 ML IV ×2 (11:17)
[2018-02-13] MEDS ORDERED: HYDROmorphone HCL 2 MG/ML 1ML VIAL (J1170) As Ordered ×2 (11:24)
[2018-02-13] MEDS ORDERED: KETOROLAC 60 MG/2 ML VIAL (J1885) As Ordered ×2 (11:25)
[2018-02-13] MEDS ORDERED: GLYCOPYRROLATE INJ 0.2 MG/ML 2 ML VIAL As Ordered ×4 (11:28)
[2018-02-13] MEDS ORDERED: NEOSTIGMINE 10 MG/10 ML VIAL (J2710) As Ordered ×2 (11:28)
[2018-02-13] MEDS: fentaNYL 100 MCG/2 ML INJECTION (J3010) IV ×2 (12:11)
[2018-02-13] MEDS ORDERED: PERCOCET 5MG/325MG TAB As Ordered ×2 (12:23)
[2018-02-13] MEDS: PERCOCET 5MG/325MG TAB PO ×2 (12:24)
[2018-02-13] MEDS ORDERED: PERCOCET 5MG/325MG TAB PO ×2 (12:30)
[2018-02-13] MEDS ORDERED: LR 1,000 ML IV ×2 (12:30)
[2018-02-13] MEDS: ONDANSETRON 4MG/2ML VIAL (J2405) IV ×2 (14:15)
[2018-02-13] MEDS ORDERED: KETOROLAC 30 MG/ML VIAL (J1885) IV ×2 (18:00)
== END 2018-02-13 15:27 | disposition home or self-care (01) ==
LOC: M SDC 08:05
DX: Z30.2 Encounter for sterilization (principal); Z88.0 Allergy status to penicillin; Z88.8 Allergy status to other drugs, medicaments and biological substances
CPT/HCPCS: 58571